=== PATIENT | female | born 1955 | race Caucasian/White ===

== ENCOUNTER 2018-01-04 10:30 | Emergency (ER) | payer OTHER ==
[2018-01-04 10:37] VITALS: BP 134/63; PULSE 69; BMI 24.0
[2018-01-04] MEDS ORDERED: ACETAMINOPHEN 500 MG TABLET (FP) PO ONE (10:40)
[2018-01-04] MEDS ORDERED: ACETAMINOPHEN 500 MG TABLET (FP) ONE (10:41)
--- NOTE | 2018-01-04 10:47 | PDOC ---
History of Present Illness - General Chief Complaint: Pain, Acute Stated Complaint: CERAMIC POT FELL ON HEAD Time Seen by Provider: 01/04/18 10:34 - History of Present Illness Initial Comments: 01/04/18 10:44 62 F with no PMH presents to ED after ceramic pot fell on her head. Pt states that she was bent over when a pot weighing about 5 lbs fell from a shelf about 6ft high and hit the top of her head. Pt denies LOC. Denies falling to the ground. Now complains of headache without nausea or vomiting. Denies neck pain. Denies weakness/numbness in any extremity. Denies dizziness. Past History - Past Medical History Allergies/Adverse Reactions: Allergies Allergy/AdvReac Type Severity Reaction Status Date / Time No Known Allergies Allergy Verified 01/04/18 10:33 Home Medications: Ambulatory Orders Escitalopram Oxalate [Lexapro -] 20 mg PO DAILY 08/01/14 Levothyroxine [Synthroid -] 100 mcg PO DAILY 08/01/14 Cancer: Yes (BREAST) COPD: No Thyroid Disease: Yes (HYPOTHYROID) - Suicide/Smoking/Psychosocial Hx Smoking History: Never smoked Hx Alcohol Use: Yes Drug/Substance Use Hx: No Substance Use Type: Alcohol Review of Systems - Review of Systems Comments:: 01/04/18 10:45 "GENERAL/CONSTITUTIONAL: No fever or chills. No weakness. HEAD, EYES, EARS, NOSE AND THROAT: No change in vision. No ear pain or discharge. No sore throat. CARDIOVASCULAR: No chest pain or shortness of breath. RESPIRATORY: No cough, wheezing, or hemoptysis. GASTROINTESTINAL: No nausea, vomiting, diarrhea or constipation. GENITOURINARY: No dysuria, frequency, or change in urination. MUSCULOSKELETAL: No joint or muscle swelling or pain. No neck or back pain. SKIN: No rash NEUROLOGIC: + headache, no vertigo, loss of consciousness, or change in strength /sensation. ENDOCRINE: No increased thirst. No abnormal weight change. HEMATOLOGIC/LYMPHATIC: No anemia, easy bleeding, or history of blood clots. ALLERGIC/IMMUNOLOGIC: No hives or skin allergy. " *Physical Exam - Vital Signs Last Vital Signs Temp Pulse Resp BP Pulse Ox 69 16 134/63 100 01/04/18 10:33 01/04/18 10:33 01/04/18 10:33 01/04/18 10:33 - Physical Exam Comments: 01/04/18 10:46 "GENERAL: Awake, alert, and fully oriented, in no acute distress. HEAD: + small hematoma with abrasion to top of head, no laceration EYES: PERRLA, EOMI, sclera anicteric, conjunctiva clear ENT: Auricles normal inspection, hearing grossly normal, nares patent, oropharynx clear without exudates. Moist mucosa NECK: Nontender, no stepoffs, Normal ROM, supple, no lymphadenopathy, JVD, or masses LUNGS: Breath sounds equal, clear to auscultation bilaterally. No wheezes, and no crackles HEART: Regular rate and rhythm, normal S1 and S2, no murmurs, rubs or gallops ABDOMEN: Soft, nontender, normoactive bowel sounds. No guarding, no rebound. No masses EXTREMITIES: Normal range of motion, no edema. No clubbing or cyanosis. No cords, erythema, or tenderness NEUROLOGICAL: Cranial nerves II through XII intact. 5/5 strength and sensation in all extremities, Normal speech, normal gait, normal cerebellar function SKIN: Warm, Dry, normal turgor, no rashes or lesions noted. " ED Treatment Course - RADIOLOGY Radiology Studies Ordered: Category Date Time Status HEAD CT WITHOUT CONTRAST [CT] Stat CT Scan 01/04/18 10:39 Ordered - Medications Given in the ED: ED Medications Discontinued Medications Generic Name Dose Route Start Last Admin Trade Name Freq PRN Reason Stop Dose Admin Acetaminophen 1,000 mg 01/04/18 10:40 01/04/18 10:43 Tylenol - PO 01/04/18 10:41 1,000 mg ONCE ONE Administration Medical Decision Making - Medical Decision Making 01/04/18 10:46 62 F with mild head injury 2/2 ceramic pot fell on head. - CT head - tylenol 01/04/18 11:29 CTH negative. Pt reassessed - pain improved with tylenol. Pt is well appearing, with normal vitals. Clinically stable for DC at this time. I discussed the physical exam findings, ancillary test results and final diagnoses with the patient. I answered all of the patient's questions. The patient was satisfied with the care received and felt comfortable with the discharge plan and treatment plan. The patient agrees to follow up with the primary care physician within 24-72 hours. *DC/Admit/Observation/Transfer Diagnosis at time of Disposition: Head injury - Discharge Dispostion Disposition: HOME Condition at time of disposition: Stable - Referrals - Patient Instructions Printed Discharge Instructions: DI for Postconcussion Syndrome Additional Instructions: Take tylenol or motrin as needed for pain. If you experience worsening headache, vomiting, confusion, worsening bleeding, pain or any other concerning symptoms, return to the ER immediately. Otherwise, follow up with your primary doctor within 1 week. - Post Discharge Activity - Attestations Physician Attestion: 01/04/18 11:30 I, Dr. David Duque MD, attest that this document has been prepared under my direction and personally reviewed by me in its entirety. I further attest, that it accurately reflects all work, treatment, procedures and medical decision -making performed by me.
[2018-01-04] MEDS ORDERED: DIPHTH,PERTUSS(ACELL),TET 0.5 ML DISP.SYRIN IM ONE (10:51)
== END 2018-01-04 12:05 | disposition home or self-care (01) ==
LOC: FER 10:30
DX: S09.90XA Unspecified injury of head, initial encounter (principal); W20.8XXA Other cause of strike by thrown, projected or falling object, initial encounter; Y93.89 Activity, other specified; Y92.9 Unspecified place or not applicable; Z85.3 Personal history of malignant neoplasm of breast; E03.9 Hypothyroidism, unspecified
CPT/HCPCS: 70450-TC; 99282-25

== ENCOUNTER 2020-12-27 22:40 | Emergency (ER) | payer OTHER ==
[2020-12-27 22:51] VITALS: BP 110/50; PULSE 60; TEMP 99; BMI 24.4
[2020-12-27 23:28] LABS: BASO % 2.1 % (0-2.0); EOS % 3.2 % (0-4.5); HEMATOCRIT 39.2 % (32.4-45.2); LYMPH % 34.4 % (8-40); MCH 30.9 pg (25.7-33.7); MCHC 33.2 g/dl (32.0-36.0); MEAN PLT VOLUME 9.3 fl (7.5-11.1); NEUT % 52.3 % (42.8-82.8); PLATELET COUNT 197 K/MM3 (134-434); RBC 4.21 M/mm3 (3.60-5.2); RDW 13.2 % (11.6-15.6); WHITE BLOOD COUNT 6.3 K/mm3 (4.0-10.8)
[2020-12-27 23:40] LABS: ALK PHOS 37 U/L (45-117); ANION GAP 9 MMOL/L (8-16); BILIRUBIN,TOTAL 0.5 mg/dl (0.2-1); CALCIUM 8.8 mg/dl (8.5-10); CHLORIDE 101 mmol/L (98-107); CO2 27 mmol/L (21-32); CREATININE 0.7 mg/dl (0.55-1.3); GLUCOSE,RANDOM 98 mg/dl (74-106); SGOT/AST 26 U/L (15-37); SGPT/ALT 18 U/L (13-61); SODIUM 137 mmol/L (136-145); TOT PROT 6.7 g/dl (6.4-8.2)
== END 2020-12-28 00:46 | disposition home or self-care (01) ==
LOC: FER 22:40
DX: R07.89 Other chest pain (principal)
CPT/HCPCS: 36415; 80053; 82550; 84484; 85025; 93005; 99284-25

== ENCOUNTER 2024-03-16 06:25 | Emergency (ER) | payer OTHER ==
[2024-03-16 06:33] VITALS: BP 144/89; PULSE 77; RESP 17; TEMP 97.5; BMI 23.0
[2024-03-16] MEDS ORDERED: ONDANSETRON 4 MG/2 ML VIAL ONE (07:32)
[2024-03-16] MEDS ORDERED: MAG HYDROX/AL HYDROX/SIMETH 30 ML UNIT-DOSE CUP ONE (07:33)
[2024-03-16] MEDS ORDERED: FAMOTIDINE 20 MG/50 ML IVPB 20 MG/50 ML MG IVPB ONE (07:33)
[2024-03-16] MEDS: ONDANSETRON 4 MG/2 ML VIAL IVPB ONE (07:47)
[2024-03-16] MEDS: MAG HYDROX/AL HYDROX/SIMETH -MYLANTA- ORAL SUSPENSION PO ONE (07:47)
[2024-03-16] MEDS: FAMOTIDINE 20 MG/50 ML IVPB 20 MG in PREMIX 50 IVPB ONE (07:48)
[2024-03-16 07:52] LABS: HEMATOCRIT 37.3 % (32.4-45.2); HEMOGLOBIN 11.8 G/dL (10.7-15.3); MCH 29.7 pg (25.7-33.7); MCHC 31.6 g/dl (32.0-36.0); MEAN PLT VOLUME 8.6 fl (7.5-11.1); PLATELET COUNT 223.3 10^3/uL (134-434); RBC 3.97 10^6/uL (3.60-5.2); RDW 18.5 % (11.6-15.6); WHITE BLOOD COUNT 4.7 10^3/uL (4.0-10.8)
[2024-03-16] MEDS: ACETAMINOPHEN 1000 MG/100 ML BAG IVPB ONE (07:53)
[2024-03-16] MEDS: SODIUM CHLORIDE 0.9% 500 ML INFUS.BAG IV ONE (07:53)
[2024-03-16 08:17] LABS: VENOUS BASE EXCESS 0.5 mmol/L (-2-2); VENOUS PCO2 50.9 mmHg (38-52); VENOUS PH 7.346 (7.310-7.410)
[2024-03-16 08:23] LABS: POTASSIUM 4.1 mmol/L (3.5-5.1)
[2024-03-16 08:26] LABS: CALCIUM 8.6 mg/dL (8.5-10.1)
[2024-03-16 08:28] LABS: ALBUMIN 3.6 g/dl (3.4-5.0); BLOOD UREA NITROGEN 15.7 mg/dL (7-18)
[2024-03-16 08:31] LABS: CREATININE 0.6 mg/dL (0.55-1.3)
[2024-03-16 08:32] LABS: BILIRUBIN,TOTAL 0.9 mg/dL (0.2-1)
[2024-03-16 09:05] LABS: PLATELET ESTIMATE ADEQUATE
== END 2024-03-16 08:48 | disposition home or self-care (01) ==
LOC: FER 06:25
PROC: 3E033GC Introduction of Other Therapeutic Substance into Peripheral Vein, Percutaneous Approach (ICD-10-PCS; principal; 2024-03-16)
DX: R10.13 Epigastric pain (principal); R07.89 Other chest pain; R74.01 Elevation of levels of liver transaminase levels
CPT/HCPCS: 36415; 80053; 82803; 83605; 83690; 84484; 85027; 93005; 99284-25